=== PATIENT | male | born 1990 | race Caucasian/White ===

== ENCOUNTER 2022-10-26 19:01 | Emergency (ER) | payer OTHER, SELFPAY ==
[2022-10-26 19:06] VITALS: BP 156/94; PULSE 91; RESP 16; TEMP 36.4; O2SAT 100
--- NOTE | 2022-10-26 20:47 | PC.NURSE ---
patient states he is feeling better and no longer needs to be seen. left from waiting area
== END 2022-10-26 21:48 | disposition left against medical advice (07) ==
DX: R06.02 Shortness of breath (principal)
CPT/HCPCS: 99199